=== PATIENT | female | born 1985 | race Caucasian/White ===

== ENCOUNTER 2017-05-04 20:06 | Emergency (ER) | payer OTHER ==
[~2017-05-04] VITALS: Ht 152.4 cm; Wt 72.6 kg
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
[2017-05-04] MEDS ORDERED: CYCLOBENZAPRINE HCL 10 MG TABLET PO ONE (21:15)
[2017-05-04] MEDS ORDERED: OXYCODONE/APAP 5-325 MG TABLET PO ONE (21:15)
[2017-05-04] MEDS ORDERED: ONDANSETRON ODT 4 MG TAB.RAPDIS SL ONE (21:15)
[2017-05-04 21:26] LABS: *URINE HCG, QUAL NEGATIVE (NEGATIVE)
[2017-05-04 21:27] LABS: BASOPHILS % (AUTO) 0.6 % (0.0-2.0); EOSINOPHILS # (AUTO) 0.1 K/uL (0.0-0.7); HEMATOCRIT 38.3 % (37-47); HEMOGLOBIN 12.8 G/DL (12.0-16.0); LYMPHOCYTES # (AUTO) 2.2 K/UL (0.8-4.8); LYMPHOCYTES % (AUTO) 32.1 % (20.5-51.5); MEAN CORPUSCULAR HEMOGLOBIN 30.1 UUG (27.0-31.0); MEAN CORPUSCULAR HGB CONC 33 g/dL (32.0-37.0); MEAN CORPUSCULAR VOLUME 90.3 FL (81.0-99.0); MONOCYTES # (AUTO) 0.7 K/UL (0.1-1.30); MONOCYTES % (AUTO) 9.3 % (0.0-11.0); PLATELET COUNT (AUTO) 295 K/UL (150-450); RED BLOOD CELL COUNT(AUTO) 4.24 MIL/UL (4.2-5.4)
--- NOTE | 2017-05-04 21:55 | NUR ---
MEDS GIVEN ORDERS
[2017-05-04] MEDS ORDERED: OXYCODONE/APAP 5-325 MG TABLET ONE (22:05)
[2017-05-04] MEDS ORDERED: CYCLOBENZAPRINE HCL 10 MG TABLET ONE (22:05)
[2017-05-04] MEDS ORDERED: ONDANSETRON ODT 4 MG TAB.RAPDIS ONE (22:06)
[2017-05-04 22:10] VITALS: BP 128/74
--- NOTE | 2017-05-04 22:11 | NUR ---
Patient discharged to home in stable conditon. Written and verbal after care instructions given. Patient verbalizes understanding of instructions.
== END 2017-05-04 22:15 | disposition home or self-care (01) ==
LOC: ER 20:08
DX: S13.4XXA Sprain of ligaments of cervical spine, initial encounter (principal); G43.909 Migraine, unspecified, not intractable, without status migrainosus; V89.2XXA Person injured in unspecified motor-vehicle accident, traffic, initial encounter; Y93.89 Activity, other specified; Y92.410 Unspecified street and highway as the place of occurrence of the external cause; Y99.8 Other external cause status
CPT/HCPCS: 36415; 84703; 85025; 99284; A4663; Q0162

== ENCOUNTER 2018-07-27 10:18 | Emergency (ER) | payer MEDICAID, OTHER ==
[~2018-07-27] VITALS: Ht 152.4 cm; Wt 77.1 kg
--- NOTE | 2018-07-27 10:43 | NUR ---
Dr Myers is at bedside doing his MSE.
[2018-07-27 11:13] LABS: BASOPHILS % (AUTO) 0.3 % (0.0-2.0); EOSINOPHILS # (AUTO) 0.1 K/uL (0.0-0.7); EOSINOPHILS % (AUTO) 1.4 % (0.0-7.0); HEMATOCRIT 37.2 % (31.2-41.9); HEMOGLOBIN 12.8 g/dL (10.9-14.3); LYMPHOCYTES # (AUTO) 1.5 K/uL (20.0-40.0); LYMPHOCYTES % (AUTO) 15.3 % (20.5-51.5); MEAN CORPUSCULAR HEMOGLOBIN 31.9 uug (24.7-32.8); MEAN CORPUSCULAR HGB CONC 35 g/dL (32.3-35.6); MEAN CORPUSCULAR VOLUME 92.4 fL (75.5-95.3); MONOCYTES # (AUTO) 0.5 K/uL (2.0-10.0); MONOCYTES % (AUTO) 5.4 % (0.0-11.0); NEUTROPHILS # (AUTO) 7.8 K/uL (1.8-8.9); NEUTROPHILS % (AUTO) 77.6 % (38.5-71.5); PLATELET COUNT (AUTO) 297 K/uL (179-408); RED BLOOD CELL COUNT(AUTO) 4.03 MIL/uL (3.63-4.92)
[2018-07-27 11:20] LABS: CREATININE 0.8 mg/dL (0.6-1.3); POTASSIUM 3.6 mmol/L (3.5-5.1)
[2018-07-27 11:25] LABS: BILIRUBIN,DIRECT 0.1 mg/dL (0.0-0.2); BILIRUBIN,TOTAL 0.3 mg/dL (0.2-1.0); TOTAL PROTEIN, SERUM 6.8 g/dL (6.4-8.2)
--- NOTE | 2018-07-27 12:11 | NUR ---
Patient discharged to home in stable conditon. Written and verbal after care instructions given to patient. Patient verbalizes understanding of instructions. Copies of all the tests done today were provided to patient for primary Ob-Gyne follow-up.
== END 2018-07-27 12:15 | disposition home or self-care (01) ==
LOC: ER 10:18
DX: O03.9 Complete or unspecified spontaneous abortion without complication (principal); Z3A.00 Weeks of gestation of pregnancy not specified
CPT/HCPCS: 36415; 76856; 85025; 85730; 86850; 86900; 86901; A4663

== ENCOUNTER 2018-08-30 15:55 | Emergency (ER) | payer MEDICAID ==
[~2018-08-30] VITALS: Ht 152.4 cm; Wt 77.1 kg
[2018-08-30] MEDS ORDERED: IV NORMAL SALINE 1000 ML BAG IV ONE (17:45)
[2018-08-30] MEDS ORDERED: ONDANSETRON 4 MG/2 ML VIAL IV ONE (17:45)
[2018-08-30] MEDS ORDERED: HYDROMORPHONE 1 MG/1 ML DISP.SYRIN IV ONE (17:45)
[2018-08-30 17:53] LABS: BASOPHILS % (AUTO) 0.2 % (0.0-2.0); EOSINOPHILS # (AUTO) 0.1 K/uL (0.0-0.7); EOSINOPHILS % (AUTO) 0.7 % (0.0-7.0); HEMATOCRIT 39.4 % (31.2-41.9); HEMOGLOBIN 13.2 g/dL (10.9-14.3); LYMPHOCYTES # (AUTO) 0.8 K/uL (20.0-40.0); LYMPHOCYTES % (AUTO) 6.1 % (20.5-51.5); MEAN CORPUSCULAR HEMOGLOBIN 30.3 uug (24.7-32.8); MEAN CORPUSCULAR HGB CONC 33 g/dL (32.3-35.6); MEAN CORPUSCULAR VOLUME 90.9 fL (75.5-95.3); MONOCYTES # (AUTO) 0.4 K/uL (2.0-10.0); MONOCYTES % (AUTO) 2.9 % (0.0-11.0); NEUTROPHILS # (AUTO) 11.8 K/uL (1.8-8.9); NEUTROPHILS % (AUTO) 90.1 % (38.5-71.5); PLATELET COUNT (AUTO) 281 K/uL (179-408); RED BLOOD CELL COUNT(AUTO) 4.33 MIL/uL (3.63-4.92); WHITE BLOOD COUNT (AUTO) 13.1 K/uL (3.8-11.8)
[2018-08-30] MEDS ORDERED: ONDANSETRON 4 MG/2 ML VIAL ONE (17:57)
[2018-08-30] MEDS ORDERED: HYDROMORPHONE 1 MG/1 ML DISP.SYRIN ONE (17:57)
--- NOTE | 2018-08-30 18:01 | NUR ---
PATIENT WAS SEEN BY . IV PLACED BY OTHER RN. PATIENT DID NOT WANT DILAUDID AT THIS TIME.
[2018-08-30 18:03] LABS: CREATININE 0.8 mg/dL (0.6-1.3); POTASSIUM 4.1 mmol/L (3.5-5.1)
[2018-08-30 18:09] LABS: BILIRUBIN,DIRECT 0.1 mg/dL (0.0-0.2); BILIRUBIN,TOTAL 0.8 mg/dL (0.2-1.0)
--- NOTE | 2018-08-30 19:03 | NUR ---
HAND OFF REPORT GIVEN TO CARLOS MELGAR
--- NOTE | 2018-08-30 19:23 | NUR ---
Dr. Louis GALLEGOS MD at bedside for update/re-evaluation.
[2018-08-30] MEDS ORDERED: FAMOTIDINE 20 MG TABLET ONE (19:44)
[2018-08-30] MEDS ORDERED: FAMOTIDINE 20 MG TABLET PO ONE (19:45)
--- NOTE | 2018-08-30 19:47 | NUR ---
IV removed. Catheter intact and site benign. Pressure and 4x4 gauze applied to site. No bleeding noted.
[2018-08-30 19:59] VITALS: BP 114/82
--- NOTE | 2018-08-30 19:59 | NUR ---
Patient discharged to home in stable conditon. Written and verbal after care instructions given. Patient verbalizes understanding of instructions. Pt left ER in steady gait. All belongings w pt. VSS. NAD noted.
== END 2018-08-30 20:00 | disposition home or self-care (01) ==
LOC: ER 15:55
DX: K21.9 Gastro-esophageal reflux disease without esophagitis (principal); Z90.49 Acquired absence of other specified parts of digestive tract
CPT/HCPCS: 36415; 71045; 74176; 80048; 80076; 83690; 84702; 85025; 85730; 93005; 96361; 96374; 99284; J2405; A4663; J1170; J7030

== ENCOUNTER 2020-12-25 23:32 | Emergency (ER) | payer MEDICAID ==
[~2020-12-25] VITALS: Ht 152.4 cm; Wt 72.6 kg
--- NOTE | 2020-12-25 23:50 | NUR ---
Pt came in with c/o sinus pain x2 weeks, and noticed brownish discharge. A/O x4, no SOB or labored breathing. Afebrile. No c/o chest pain/pressure. No GI/ distress.
[2020-12-26] MEDS ORDERED: IBUPROFEN 600 MG TABLET PO ONE
[2020-12-26] MEDS ORDERED: SULFAMETH/TRIMETH 800/160 MG TABLET PO ONE
[2020-12-26] MEDS ORDERED: ONDA4TAB5 PO (00:02)
[2020-12-26] MEDS ORDERED: SULF1TAB48 PO (00:02)
[2020-12-26] MEDS ORDERED: HYDR-3980 PO (00:02)
[2020-12-26] MEDS ORDERED: IBUPROFEN 600 MG TABLET ONE (00:14)
[2020-12-26] MEDS ORDERED: ONDANSETRON ODT 4 MG TAB.RAPDIS ONE (00:14)
[2020-12-26] MEDS ORDERED: SULFAMETH/TRIMETH 800/160 MG TABLET ONE (00:15)
[2020-12-26] MEDS ORDERED: HYDROCODONE/APAP 10-325 MG TABLET PO ONE (00:15)
[2020-12-26] MEDS ORDERED: ONDANSETRON ODT 4 MG TAB.RAPDIS SL ONE (00:15)
[2020-12-26] MEDS ORDERED: HYDROCODONE/APAP 10-325 MG TABLET ONE (00:15)
--- NOTE | 2020-12-26 00:28 | NUR ---
Patient discharged to home in stable condition. Written and verbal after care instructions given. Patient verbalizes understanding of instructions. Stressed follow up or return to ER for worsening s/s. Steady gait. No c/o pain/discomfort, medications noted to be effective.
[2020-12-26 00:30] VITALS: BP 142/86
== END 2020-12-26 00:31 | disposition home or self-care (01) ==
LOC: ER 23:37
DX: J32.9 Chronic sinusitis, unspecified (principal); R03.0 Elevated blood-pressure reading, without diagnosis of hypertension; Z86.69 Personal history of other diseases of the nervous system and sense organs
CPT/HCPCS: A4663; Q0162

== ENCOUNTER 2022-06-15 21:05 | Emergency (ER) | payer MEDICAID ==
[~2022-06-15] VITALS: Ht 152.4 cm; Wt 71.7 kg
[~2022-06-15 21:05] MED LIST: HYDR-3980 PO; ONDA4TAB5 PO; SULF1TAB48 PO
[2022-06-15] MEDS ORDERED: IBUP-1490 PO (21:58)
[2022-06-15] MEDS ORDERED: HYDR-4209 PO (21:58)
[2022-06-15] MEDS ORDERED: HYDROCODONE/APAP 5-325MG TABLET PO ONE (22:00)
[2022-06-15] MEDS ORDERED: IBUPROFEN 600 MG TABLET PO ONE (22:00)
[2022-06-15] MEDS ORDERED: HYDROCODONE/APAP 5-325MG TABLET ONE (22:03)
[2022-06-15] MEDS ORDERED: IBUPROFEN 600 MG TABLET ONE (22:03)
--- NOTE | 2022-06-15 22:11 | NUR ---
Patient discharged to home in stable condition. Written and verbal after care instructions given. Patient verbalizes understanding of instructions. Stressed follow up or return to ER for worsening s/s. Patient is a/ox4, NAD noted. Patient is able to walk with steady gait
[2022-06-15 22:13] VITALS: BP 113/78
== END 2022-06-15 22:14 | disposition home or self-care (01) ==
LOC: ER 21:05
DX: M65.4 Radial styloid tenosynovitis [de Quervain] (principal)
CPT/HCPCS: A4663

== ENCOUNTER 2023-03-08 03:09 | Emergency (ER) | payer BC, MEDICAID ==
[~2023-03-08] VITALS: Ht 152.4 cm; Wt 72.6 kg
[~2023-03-08 03:09] MED LIST changes: +HYDR-4209 PO; +IBUP-1490 PO
[2023-03-08] MEDS ORDERED: HYDR-501 PO (04:10)
[2023-03-08] MEDS ORDERED: IBUPROFEN 600 MG TABLET ONE (04:11)
[2023-03-08] MEDS ORDERED: hydrOXYzine HCL 25 MG TABLET PO ONE (04:15)
[2023-03-08] MEDS ORDERED: IBUPROFEN 600 MG TABLET PO ONE (04:15)
[2023-03-08] MEDS ORDERED: hydrOXYzine HCL 25 MG TABLET ONE (04:20)
[2023-03-08 04:40] VITALS: BP 119/83; TEMP 98; O2SAT 98
== END 2023-03-08 04:25 | disposition home or self-care (01) ==
LOC: ER 03:12
DX: L29.9 Pruritus, unspecified (principal); M79.10 Myalgia, unspecified site; G43.909 Migraine, unspecified, not intractable, without status migrainosus; Z90.49 Acquired absence of other specified parts of digestive tract; Z79.1 Long term (current) use of non-steroidal anti-inflammatories (NSAID); Z79.899 Other long term (current) drug therapy
CPT/HCPCS: A4663